=== PATIENT | male | born 1935 | race Caucasian/White ===

== ENCOUNTER 2018-04-29 13:54 | Outpatient (RCR) | payer MEDICARE ==
[~2018-04-29 13:54] MED LIST: ASPIR 8181 MG PO; EXELON PATCH TD; KEPPRA500 MG PO; NAMENDA XR PO; PRAVASTATIN SOD20 MG PO; SINEMET 25-1001 EACH PO
== END 2018-05-02 ==
LOC: ST 13:54
PROVIDERS: ATTEND Psychiatry & Neurology Neurology
DX: R13.13 Dysphagia, pharyngeal phase (principal); G20 Parkinson's disease; F02.80 Dementia in other diseases classified elsewhere, unspecified severity, without behavioral disturbance, psychotic disturbance, mood disturbance, and anxiety
CPT/HCPCS: 92526 ×12; 92610; 97139; G8996 ×2; G8997 ×2

== ENCOUNTER → 2018-05-07 | Outpatient (CLI) | payer MEDICARE ==
--- NOTE | 2018-05-09 14:02 | Diagnostic Imaging Report ---
EXAM: Modified barium swallow INDICATION: Dysphagia COMPARISON: Report of modified barium swallow performed at outside institution April 09, 2018 was reviewed. FINDINGS: This examination was conducted in conjunction with speech pathologist. Patient was given, by mouth, liquids and solids of various consistencies. Examination showed premature spillage to the vallecula and piriform sinuses with all consistencies. Laryngeal penetration was noted with all consistencies except solid material and solid portion of mixed mechanical soft diet. Pierre overt aspiration of thin liquids was noted during the swallow, with minimal overt aspiration of nectar thick liquids during the swallow. Moderate to severe vallecular and piriform sinus residue following swallows of all consistencies. Fluoro time: 02:29 minutes IMPRESSION: Severe pharyngeal dysphagia characterized by aspiration of multiple consistencies. Please see speech pathology report for detailed description and recommendations.> Signed by: Dr. Carloz Galindo M.D. on 05/09/2018 1:59 PM
== END ==
LOC: DX 11:12
PROVIDERS: ATTEND Psychiatry & Neurology Neurology
DX: R13.13 Dysphagia, pharyngeal phase (principal); G20 Parkinson's disease; F02.80 Dementia in other diseases classified elsewhere, unspecified severity, without behavioral disturbance, psychotic disturbance, mood disturbance, and anxiety
CPT/HCPCS: 74230; 92611; 97139; G8996; G8997; G8998

== ENCOUNTER → 2021-06-21 | Outpatient (CLI) | payer MEDICARE | LOC: DX 10:34 | PROVIDERS: ATTEND Psychiatry & Neurology Neurology | DX: G20 Parkinson's disease (principal); F02.80 Dementia in other diseases classified elsewhere, unspecified severity, without behavioral disturbance, psychotic disturbance, mood disturbance, and anxiety; R13.13 Dysphagia, pharyngeal phase | CPT/HCPCS: 74230 ==